=== PATIENT | female | born 1985 | race Two or more races ===

== ENCOUNTER 2020-12-16 01:54 | Emergency (ER) | payer MEDICAID, OTHER ==
[~2020-12-16] VITALS: Ht 157.5 cm; Wt 68.0 kg
[2020-12-16 01:57] VITALS: BP 141/90
--- NOTE | 2020-12-16 01:57 | NUR ---
to bed # 11 ambulatory
--- NOTE | 2020-12-16 02:00 | NUR ---
35 Y/O FEMALE CAME FROM HOME C/O ANXIETY ATTACK ONE HR AGO. PERRLA INTACT, CMS INTACT, NO COGNITIVE OR NEURO DEFICITS NOTED. PT RESPONDS APPROPRIATELY. NO RESP DISTRESS NOTED. PT STATED THAT SHE HAS FELT THIS BEFORE AND RECEIVED MEDICATION AND FELT BETTER. PT STATES SHE TAKES ZOLOFT REGULARLY PER HER DOCTORS ORDERS AND THAT DIDN'T HELP RELIEVE HER ANXIETY TODAY. PMH: ANXIETY, HTN, TUBAL LIGATION 12 YRS AGO. LINDA
--- NOTE | 2020-12-16 02:03 | NUR ---
ERMD AT BEDSIDE EVALUATING PT
[2020-12-16] MEDS ORDERED: LORazepam 1 MG TAB PO ONE (02:15)
[2020-12-16 03:15] VITALS: BP 129/81
--- NOTE | 2020-12-16 03:15 | NUR ---
Patient discharged with v/s stable. Written and verbal after care instructions given and explained. Patient alert, oriented and verbalized understanding of instructions. Ambulatory with steady gait. All questions addressed prior to discharge. ID band removed. Patient advised to follow up with PMD. Rx of atarax 25 mg given. Patient educated on indication of medication including possible reaction and side effects. Opportunity to ask questions provided and answered.
== END 2020-12-16 03:15 | disposition home or self-care (01) ==
LOC: MED 01:54
DX: F41.9 Anxiety disorder, unspecified (principal); R07.9 Chest pain, unspecified
CPT/HCPCS: 99283